=== PATIENT | female | born 1975 | race Caucasian/White ===

== ENCOUNTER → 2020-09-02 | Outpatient (CLI) | payer BC ==
--- NOTE | 2020-09-03 14:20 | MAM ---
EXAM DESCRIPTION: 3D Screening BILATERAL : Digital Mammography. CLINICAL HISTORY: 44 years Female ANNUAL SCREENING . No complaints. No personal history of breast cancer. Menarche age 12. Childbirth age 19. Menopause age 23. No HRT. Prior breast reduction.. Lifetime risk of developing breast cancer (Tyrer-Cuzick model)(%): 15.9. COMPARISON: Baseline study at this facility.. No prior reports available. TECHNIQUE: Bilateral CC and MLO projection full-field images, digital tomosynthesis mammographic technique. Bilateral digital 2-D full-field MLO images. CAD available for 2-D images. FINDINGS: The breast parenchymal density pattern is: Scattered areas of fibroglandular density. No skin thickening or nipple retraction. Solitary microcalcifications. Axillary nodes. Slightly more prominent fibroglandular tissues in the upper outer quadrant of the middle third and posterior third right breast. Partially circumscribed and lobulated mass density approximately 1 cm in length may represent a lymph node. Also focal asymmetry in the anterior third of the right breast medial to the posterior nipple line 3 cm at 9:00. No new focal, stellate mass or density, focal asymmetry , and no suspicious microcalcifications left breast. IMPRESSION: BI-RADS CATEGORY: 0 - INCOMPLETE- Need additional imaging evaluation. RECOMMENDATIONS: FOLLOW-UP: Recall for additional imaging: Directed right breast ultrasound anterior third medially, and upper outer quadrant posterior third right breast laterally. Optional follow-up right diagnostic digital breast tomosynthesis. Written communication concerning the IMPRESSION and Follow-up, will be mailed to the patient and referring health care provider. Electronically signed by: Baldo Hall MD 09/03/2020 2:18 PM CDT
== END ==
LOC: MAMMO 14:27
PROVIDERS: ATTEND Family Medicine
DX: Z12.31 Encounter for screening mammogram for malignant neoplasm of breast (principal)